=== PATIENT | male | born 1955 | race Caucasian/White ===

== ENCOUNTER → 2016-09-28 | Outpatient (CLI) | payer OTHER ==
--- NOTE | 2016-09-28 08:51 | RAD ---
EXAM DESCRIPTION: Right hand series. CLINICAL HISTORY: Right hand pain. COMPARISON: None. TECHNIQUE: Three views were submitted for evaluation. FINDINGS: Mild degenerative change of the base of the thumb and the 1st and 2nd DIP joints. No fracture, dislocation, or suspicious radiopaque foreign body is seen. Soft tissues are unremarkable. Further imaging could be considered if there is clinical concern for an occult scaphoid fracture (pain over the anatomical snuff box). IMPRESSION: Mild degenerative change, no evidence of fracture. Electronically signed by: Isael Lao MD 09/28/2016 08:49
== END ==
LOC: RAD 07:58
PROVIDERS: ATTEND Orthopaedic Surgery
DX: M79.641 Pain in right hand (principal); M12.841 Other specific arthropathies, not elsewhere classified, right hand

== ENCOUNTER → 2016-12-07 | Outpatient (CLI) | payer OTHER ==
--- NOTE | 2016-12-08 07:39 | RAD ---
EXAM DESCRIPTION: Hip,Right 2 Views CLINICAL HISTORY: PAIN IN RIGHT HIP COMPARISON: None. IMPRESSION: 2 views of the right hip show no evidence of acute fracture, focal bone destruction, or joint dislocation. Mild joint space narrowing and sclerotic changes to the superior lateral acetabulum are seen consistent with mild osteoarthritic-type changes. Electronically signed by: Alexei Moody MD 12/08/2016 7:38 AM CDT
--- NOTE | 2016-12-08 07:40 | RAD ---
EXAM DESCRIPTION: Pelvis, 3 radiographs CLINICAL HISTORY: PAIN IN RIGHT HIP FINDINGS/ IMPRESSION: Pelvis, 3 radiographs No fracture of the proximal femora or pelvis. Sacral neural foraminal lines are intact. Mild osteoarthritis of the sacroiliac joints Normal mineralization. No lytic or blastic bony lesion Electronically signed by: Chaparro Waldron MD 12/08/2016 7:39 AM CDT
== END | disposition home or self-care (01) ==
LOC: RAD 13:52
PROVIDERS: ATTEND Orthopaedic Surgery
DX: M25.551 Pain in right hip (principal)

== ENCOUNTER 2016-12-16 05:26 | Day surgery (SDC) | payer OTHER ==
[2016-12-16] MEDS ORDERED: LACTATED RINGERS 1,000 ML ONE (06:50)
[2016-12-16] MEDS ORDERED: SODIUM CHL 0.9% 100ML MINI-BAG 100 ML IVPB ONE (06:50)
[2016-12-16] MEDS ORDERED: ceFAZolin SODIUM 1 GM VIAL ONE ×2 (06:50→08:14)
[2016-12-16] MEDS ORDERED: LIDOCAINE 1% 50 ML VIAL INJ ONE (06:51)
[2016-12-16] MEDS ORDERED: BUPIVACAINE 0.25% INJ 30 ML VIAL INJ ONE (06:51)
[2016-12-16] MEDS ORDERED: MIDAZOLAM INJ 5 MG/5 ML VIAL ONE (06:53)
[2016-12-16] MEDS ORDERED: fentaNYL CITRATE INJ 50 MCG/ML AMP ONE (06:53)
[2016-12-16] MEDS ORDERED: VANCOMYCIN HCL INJ 1,000 MG VIAL IVPB ONE (08:15)
[2016-12-16 08:42] VITALS: TEMP 97.3
[2016-12-16] MEDS ORDERED: PROPOFOL 200 MG/20 ML VIAL IV ONE (10:00)
[2016-12-16] MEDS ORDERED: LIDOCAINE 1% 10 ML VIAL INJ ONE (10:00)
[2016-12-16 10:09] VITALS: BP 130/83; O2SAT 97
--- NOTE | 2016-12-17 09:22 | OP ---
DATE OF PROCEDURE: 12/16/16 PREOPERATIVE DIAGNOSIS: 1. Right trigger thumb. POSTOPERATIVE DIAGNOSIS: 1. Right trigger thumb. PROCEDURE: 1. Trigger release. SURGEON: Tom Villegas MD. COMMERCIAL LEASING MANAGER: John Roberts CST, SA-C. ANESTHESIA: Conscious sedation. COMPLICATIONS: None. FINDINGS: Triggering at the A1 tye of the thumb. INDICATION: Mr. Salinas has a history of clicking in association with pain and occasional locking at the A1 tye of the first digit. He has had injection there before, however, failed to get terminal system operator relief. Because of the failure of relief, he has requested operative intervention. After discussing the risks , benefits and alternatives to operative therapy, the patient has given informed consent. PROCEDURE: The patient was brought to the Operating Room and placed in the supine position. Sedation was administered and local anesthetic was injected into the operative area. Following infection, the arm was sterilely prepped and draped. A transverse incision was made directly overlying the A1 tye of the triggering digit and blunt dissection was carried down to the tye while protecting the digital nerves. After identification of the tye, the tye was transected and a [place] elevator was passed both proximally and distally to ensure complete release. The finger was flexed and extended and there was no evidence of locking or clicking. The wound was thoroughly irrigated and closed with Nylon suture. A sterile dressing was placed and the patient was taken to the Day Surgery Unit. POSTOPERATIVE INSTRUCTIONS: He will be utilizing the finger for range of motion and will followup with us in two days. #[id number] [facility]
== END 2016-12-16 09:25 | disposition home or self-care (01) ==
LOC: AMB 05:26
PROVIDERS: ATTEND Orthopaedic Surgery
DX: M65.311 Trigger thumb, right thumb (principal); I10 Essential (primary) hypertension; E11.9 Type 2 diabetes mellitus without complications; E66.9 Obesity, unspecified; Z68.38 Body mass index [BMI] 38.0-38.9, adult; Z79.899 Other long term (current) drug therapy
CPT/HCPCS: 01810; 26055; 36416; 82948; 87070; J0690; J2250; J3010; J3370; J3490; J7050; J7120

== ENCOUNTER → 2017-04-26 | Outpatient (CLI) | payer OTHER | END | disposition home or self-care (01) | LOC: GMAB 10:24 | PROVIDERS: ATTEND Family Medicine | DX: E29.1 Testicular hypofunction (principal) ==

== ENCOUNTER → 2018-08-19 | Outpatient (CLI) | payer OTHER ==
--- NOTE | 2018-08-22 07:45 | US ---
EXAM DESCRIPTION: Thyroid CLINICAL HISTORY: 63 years Male, E04.1 COMPARISON: None. FINDINGS: The right thyroid lobe measures 5 cm in length and is of homogenous internal echogenicity without hyperemia. There is a round solid hyperechoic 11 mm nodule inferior pole right thyroid lobe with slightly indistinct margins and no internal echogenicity (TIRADS category 3). There is a second 14-15 mm round hypoechoic solid nodule in the mid right thyroid lobe with ill-defined margins and no internal echogenicity (TIRADS category 4). No additional right thyroid nodule is present. The thyroid isthmus measures 4 mm AP diameter. The left thyroid lobe measures 5.3 cm in length. A 5 mm calcification is noted in the mid left thyroid lobe without discrete left thyroid nodule. IMPRESSION: Two right thyroid nodules as detailed above including a poorly defined 1.5 cm TIRADS category 4 nodule. Based on its size and appearance, biopsy of this nodule should be considered, although this may be difficult due to its very indistinct margins. At a minimum, follow-up ultrasound in one, two, three and five years is recommended. Electronically signed by: Deepak Medrano MD 08/22/2018 7:44 AM [facility]
== END ==
LOC: US 10:38
PROVIDERS: ATTEND Family Medicine
DX: E04.1 Nontoxic single thyroid nodule (principal)

== ENCOUNTER → 2018-08-25 | Outpatient (CLI) | payer OTHER | LOC: GMAE 14:15 | PROVIDERS: ATTEND Family Medicine | DX: E29.1 Testicular hypofunction (principal) ==

== ENCOUNTER → 2018-09-14 | Outpatient (CLI) | payer OTHER | LOC: GMAE 10:51 | PROVIDERS: ATTEND Family Medicine | DX: E29.1 Testicular hypofunction (principal) ==

== ENCOUNTER → 2018-10-19 | Outpatient (CLI) | payer OTHER | LOC: GMAE 10:39 | PROVIDERS: ATTEND Family Medicine | DX: E29.1 Testicular hypofunction (principal) ==

== ENCOUNTER → 2018-11-10 | Outpatient (CLI) | payer OTHER | LOC: LAB.O 08:03 | PROVIDERS: ATTEND Internal Medicine Endocrinology, Diabetes & Metabolism | DX: E11.65 Type 2 diabetes mellitus with hyperglycemia (principal); E29.1 Testicular hypofunction; R63.5 Abnormal weight gain ==

== ENCOUNTER → 2019-05-22 | Outpatient (CLI) | payer OTHER | LOC: GMAE 10:50 | PROVIDERS: ATTEND Family Medicine | DX: Z00.00 Encounter for general adult medical examination without abnormal findings (principal) ==

== ENCOUNTER 2020-04-27 07:44 | Emergency (ER) | payer OTHER ==
[2020-04-27] MEDS ORDERED: ASPIRIN (CHEWABLE) 81 MG TAB PO ONE (08:04)
[2020-04-27] MEDS ORDERED: MORPHINE SULFATE INJ 10 MG/ML VIAL ONE ×2 (08:28→09:03)
[2020-04-27] MEDS ORDERED: ONDANSETRON INJ 4 MG/2 ML VIAL ONE (08:28)
[2020-04-27] MEDS ORDERED: MORPHINE SULFATE INJ 10 MG/ML VIAL IV ONE ×2 (08:32→09:04)
[2020-04-27] MEDS ORDERED: ONDANSETRON INJ 4 MG/2 ML VIAL IV ONE (08:33)
[2020-04-27] MEDS ORDERED: CLOPIDOGREL 75 MG TAB PO ONE (08:35)
[2020-04-27] MEDS ORDERED: HEPARIN SODIUM (PORCINE) 5,000 U/ML VIAL IV ONE (08:39)
[2020-04-27] MEDS ORDERED: HEPARIN PREMIX 25,000 UNITS in PREMIX BAG 1 BAG IVS SCH (08:45)
--- NOTE | 2020-04-27 08:45 | ED.PDOC ---
History of Present Illness - General Chief Complaint: Chest Pain/MO Stated Complaint: CP, N/V, SOB, diaphoresis Time Seen by Provider: 04/27/20 07:55 - History of Present Illness Initial Comments: 65 yo M with PMH DM, HTN comes in with chest pain that started when he awoke from his sleep. Substernal pressure radiating to his righ axilla, associated with shortness of breath, nausea, diaphroesis. no emesis. Has "dislocated rib" which he associates his back pain with. States this pain is unlike any prior chest pain he has had. No hx of CAD. States recently bp has run high 150/100 today 105/64. Allergies/Adverse Reactions: Allergies Butorphanol [From Stadol] Allergy (Verified 04/27/20 08:15) Home Medications: Ambulatory Orders Albiglutide [Tanzeum] 30 mg SC WKLY 12/15/16 Aspirin [Aspirin Adult Low Dose] 81 mg PO DAILY 12/15/16 Atorvastatin Calcium [Lipitor] 10 mg PO DAILY 12/15/16 Losartan Potassium & Hydrochlo [Losartan Potassium/Hydroc 100-12.5 mg] 1 tab PO DAILY 12/15/16 Meloxicam [Mobic] 15 mg PO PRN PRN 12/15/16 Sitagliptin Phosphate [Januvia] 100 mg PO QDPC 12/15/16 Zolpidem Tartrate [Ambien] 5 mg PO BEDTIME 12/15/16 HYDROcodone 5MG/APAP 325MG [Patten 5/325] 1 tab PO Q4HR PRN #20 tab 12/16/16 Review of Systems - Review of Systems Constitutional: Denies: fever, malaise, weakness EENTM: Denies: blurred vision, tearing Respiratory: States: short of breath. Denies: cough, orthopnea, wheezing Cardiology: States: chest pain. Denies: edema, palpitations, syncope Gastrointestinal/Abdominal: Denies: abdominal pain, constipation, diarrhea, nausea, vomiting Genitourinary: Denies: frequency Musculoskeletal: States: back pain. Denies: joint pain, joint swelling, muscle pain, muscle stiffness Skin: Denies: change in color, dryness, rash Neurological: Denies: anxiety, depressed, headache, numbness, paresthesia Endocrine: Denies: intolerance to cold, intolerance to heat, increased hunger, unexplained weight gain, unexplained weight loss Hematologic/Lymphatic: Denies: anemia, blood clots, easy bleeding Past Medical History (General) - Patient Medical History Hx Stroke: No Hx of COPD: No Hx Cardiac Disorders: No Hx Congestive Heart Failure: No Hx Hypertension: Yes Hx Diabetes: Yes Hx Gastroesophageal Reflux: Yes Hx Cancer: No Hx MRSA: No Surgical History: appendectomy, cholecystectomy - Vaccination History Hx Influenza Vaccination: Yes Hx Pneumococcal Vaccination: Yes - Social History Hx Tobacco Use: No Hx Alcohol Use: Yes Hx Substance Use: No Hx Substance Use Treatment: No Hx Depression: No - Female History Patient is a Female of Child Bearing Age (10 -59 yrs old): No Patient : No Family Medical History - Family History Mother Family History: Unknown Physical Exam - Physical Exam General Appearance: Alert, Comfortable, No apparent distress Eyes, Ears, Nose, Throat Exam: PERRL/EOMI, normal ENT inspection Neck: non-tender, full range of motion, supple, normal inspection Respiratory: chest non-tender, lungs clear, normal breath sounds, no respiratory distress, no accessory muscle use Cardiovascular/Chest: normal peripheral pulses, regular rate, rhythm, no edema, no gallop, no JVD, no murmur Peripheral Pulses: radial,right: 2+, radial,left: 2+, dorsalis pedis,right: 2+, dorsalis pedis,left: 2+ Gastrointestinal/Abdominal: normal bowel sounds, non tender, soft, no organomegaly, no pulsatile mass Rectal Exam: deferred Extremity: normal range of motion, non-tender, normal inspection, no pedal edema, no calf tenderness Neurologic: silk blocker II-XII nml as tested, no motor/sensory deficits, alert, normal mood/affect, oriented x 3 Skin Exam: normal color, warm/dry Lymphatic: no adenopathy Progress - Progress Progress: 04/27/20 08:30 EKG STAT 04/27/20 08:45 Heparin Premix [Heparin/D5w 25,000U/500ML] 25,000 units Premix Bag 1 bag IVS PRN Laboratory Results PT 10.4 SECONDS (9.0-10.9) 04/27/20 08:08 INR 1.05 (0.9-1.15) 04/27/20 08:08 PTT (SP) 24.5 SECONDS (21.8-31.6) 04/27/20 08:08 Sodium 134 mmol/L (135-145) L 04/27/20 08:08 Potassium 4.5 mmol/L (3.6-5.0) 04/27/20 08:08 Chloride 105 mmol/L (101-111) 04/27/20 08:08 Carbon Dioxide 19 mmol/L (21-31) L 04/27/20 08:08 Anion Gap 14.5 (12-18) 04/27/20 08:08 BUN 37 mg/dL (7-18) H 04/27/20 08:08 Creatinine 2.12 mg/dL (0.6-1.3) H 04/27/20 08:08 BUN/Creatinine Ratio 17.5 (10-20) 04/27/20 08:08 Random Glucose 164 mg/dL (70-105) H 04/27/20 08:08 Serum Osmolality 280.6 mOsm/L (275-295) 04/27/20 08:08 Calcium 9.1 mg/dL (8.4-10.2) 04/27/20 08:08 Total Bilirubin 0.8 mg/dL (0.2-1.0) 04/27/20 08:08 AST 67 IU/L (10-42) H 04/27/20 08:08 ALT 56 IU/L (10-60) 04/27/20 08:08 Alkaline Phosphatase 63 IU/L (42-121) 04/27/20 08:08 Troponin I 3.21 ng/mL (0.01-0.05) H* 04/27/20 08:08 Serum Total Protein 7.7 gm/dL (6.4-8.2) 04/27/20 08:08 Albumin 4.3 g/dl (3.2-5.5) 04/27/20 08:08 Globulin 3.4 gm/dL (2.3-3.5) 04/27/20 08:08 Albumin/Globulin Ratio 1.3 (1.1-1.9) 04/27/20 08:08 04/27/20 09:06 - Results/Orders Results/Orders: EKG at 744 no prior to compare. V1 1mm elevation, 2-3 mm depression in lateral leads and Lead II. Concern for septal infarct with reciprocal changes. Due to not having cardiology at this facility and considering travel time I will forgo remaining labs and call cardiology for recommendation. Patient given 324 aspirin. nitroglycerin was held due to normal elevated bp at home, currently borderline bp systolic 105. Discussed concerns with family and patient. Recommend transfer to a tertiary care center. Patient and family understand and agree to plan Discuss with Cardiology, will give 5000 U heparin blous, heparin drip. Given 300 mg plavix PO. 2 mg morphine for pain. Bp stable above 100 systolic. Plan to transfer to [facility] for further care. Repeat EKG shows similar findings to first. The data reviewed when caring for this patient included: nurse notes etc. The history and assessments from nurses notes were reviewed and considered, and the patient's home medication list was also reviewed and considered. My assessment and the results of testing completed here in the ED were discussed with the patient/family. All questions were answered, and they express understanding of my assessment and the plan. patient was transferred in stable condition. Departure - Departure Clinical Impression: NSTEMI (non-ST elevated myocardial infarction) Chest pain Qualifiers: Chest pain type: chest pain due to myocardial ischemia Ischemic chest pain type: unspecified angina pectoris type Qualified Code(s): I25.9 - Chronic ischemic heart disease, unspecified Time of Disposition: 09:01 Disposition: Transfer to Hospital Departure Forms: ED Discharge - Pt. Copy, Patient Portal Self Enrollment Instructions: DI for Chest Pain Referrals: DAHIANA MCNAMARA MD [Primary Care Provider] - 1-2 Days Home Medications: Ambulatory Orders Albiglutide [Tanzeum] 30 mg SC WKLY 12/15/16 Aspirin [Aspirin Adult Low Dose] 81 mg PO DAILY 12/15/16 Atorvastatin Calcium [Lipitor] 10 mg PO DAILY 12/15/16 Losartan Potassium & Hydrochlo [Losartan Potassium/Hydroc 100-12.5 mg] 1 tab PO DAILY 12/15/16 Meloxicam [Mobic] 15 mg PO PRN PRN 12/15/16 Sitagliptin Phosphate [Januvia] 100 mg PO QDPC 12/15/16 Zolpidem Tartrate [Ambien] 5 mg PO BEDTIME 12/15/16 HYDROcodone 5MG/APAP 325MG [Patten 5/325] 1 tab PO Q4HR PRN #20 tab 12/16/16 Transfer to Outside Facility - Transfer Information Decision to Transfer Date: 04/27/20 Decision to Transfer Time: 09:04 Reason for Transfer: required specialist not available
--- NOTE | 2020-04-27 09:00 | RAD ---
EXAM DESCRIPTION: XR Chest, one view CLINICAL HISTORY: chest pain. COMPARISON: March 13, 2008 FINDINGS: The heart is normal in size. Perihilar edema and vascular congestion is noted. Interstitial infiltrate is seen in the right infrahilar region. No pneumothorax or pleural effusion is seen. The osseous structures appear unremarkable. IMPRESSION: Vascular congestion and right infrahilar interstitial infiltrate. Electronically signed by: Lakeshia Preston MD 04/27/2020 8:58 AM CDT
[2020-04-27 09:05] VITALS: BP 108/80; TEMP 97.1; O2SAT 94
== END 2020-04-27 09:19 | disposition short-term general hospital (02) ==
LOC: ER 07:44
DX: I21.4 Non-ST elevation (NSTEMI) myocardial infarction (principal); I25.9 Chronic ischemic heart disease, unspecified; R06.02 Shortness of breath; E11.9 Type 2 diabetes mellitus without complications; I10 Essential (primary) hypertension; K21.9 Gastro-esophageal reflux disease without esophagitis; Z90.49 Acquired absence of other specified parts of digestive tract; Z79.82 Long term (current) use of aspirin; Z79.899 Other long term (current) drug therapy; Z88.8 Allergy status to other drugs, medicaments and biological substances
CPT/HCPCS: 36415; 71045; 80053; 84484; 85610; 85730; 93005; J1644; J2270; J2405